=== PATIENT | male | born 1970 | race American Indian/Alaskan Native ===

== ENCOUNTER 2016-10-28 13:02 | Emergency (ER) | payer OTHER ==
[2016-10-28 13:50] VITALS: BMI 34.4
--- NOTE | 2016-10-28 14:05 | ED PDOC ---
Arrival/HPI - General Chief Complaint: Flu-like Symptoms Time Seen by Provider: 10/28/16 13:58 Historian: Patient - History of Present Illness Time/Duration: Other (2 day) Symptom Onset: Gradual Symptom Course: Unchanged Quality: Aching Severity Level: Mild Activities at Onset: Rest Associated Symptoms (Text): 10/28/16 14:03 Patient complains of a 2 day history of mild nonproductive cough congestion and URI symptoms. Fever to 101. No sputum production. Generalized myalgias and arthralgias. Some chills. No abdominal pain nausea or vomiting. No genitourinary symptoms. No sore throat. No dyspnea. No chest pain, Past Medical History - Infectious Disease Hx of Infectious Diseases: None - Tetanus Immunization Tetanus Immunization: >10 years Ago, Unknown - Past Medical History Past Medical History: No Previous - Cardiac Hx Cardiac Disorders: No - Pulmonary Hx Respiratory Disorders: No - Neurological Hx Neurological Disorder: No - HEENT Hx HEENT Disorder: No - Renal Hx Renal Disorder: No - Endocrine/Metabolic Hx Endocrine Disorders: Yes Hx Diabetes Mellitus Type 2: Yes - Hematological/Oncological Hx Blood Disorders: No - Integumentary Hx Dermatological Disorder: No Hx Basal Cell Carcinoma: No - Musculoskeletal/Rheumatological Hx Musculoskeletal Disorders: No - Gastrointestinal Hx Gastrointestinal Disorders: No - Genitourinary/Gynecological Hx Genitourinary Disorders: No - Psychiatric Hx Psychophysiologic Disorder: No Hx Substance Use: No - Past Surgical History Past Surgical History: No Previous - Surgical History Other/Comment: left index and middle fingers - Anesthesia Hx Anesthesia: No Hx Anesthesia Reactions: No Hx Malignant Hyperthermia: No - Suicidal Assessment Feels Threatened In Home Enviroment: No Family/Social History - Physician Review Nursing Documentation Reviewed: Yes Family/Social History: Unknown Family HX Smoking Status: Light Smoker < 10 Cigarettes Daily Hx Alcohol Use: No Hx Substance Use: No Hx Substance Use Treatment: No Allergies/Home Meds Allergies/Adverse Reactions: Allergies No Known Allergies Allergy (Verified 08/22/16 08:00) Home Medications: Home Meds Medication Instructions Recorded Confirmed Atorvastatin Calcium [Lipitor] 10 mg PO DAILY 08/22/16 10/28/16 Review of Systems - Physician Review All systems were reviewed & negative as marked: Yes - Review of Systems Constitutional: Fatigue, Fevers Respiratory: Cough. absent: SOB, Sputum, Wheezing Cardiovascular: absent: Chest Pain, Palpitations, Syncope Gastrointestinal: absent: Abdominal Pain, Diarrhea, Nausea, Vomiting Genitourinary Male: absent: Dysuria, Frequency, Hematuria Musculoskeletal: Arthralgias, Myalgias Neurological: absent: Headache, Dizziness, Focal Weakness Physical Exam Vital Signs Temp Pulse Resp BP Pulse Ox 10/28/16 15:24 98.4 F 65 20 123/86 100 10/28/16 13:15 97.8 F 76 18 129/93 H 98 Temperature: Afebrile Blood Pressure: Hypertensive Pulse: Regular Respiratory Rate: Normal Appearance: Positive for: Well-Appearing, Non-Toxic, Comfortable Pain Distress: None Mental Status: Positive for: Alert and Oriented X 3 - Systems Exam Head: Present: Atraumatic, Normocephalic Pupils: Present: PERRL Extroacular Muscles: Present: EOMI Conjunctiva: Present: Normal Ears: Present: NORMAL TM. No: Erythema Mouth: Present: Moist Mucous Membranes Pharnyx: No: ERYTHEMA, EXUDATE, TONSILS ENLARGED Neck: Present: Normal Range of Motion. No: Meningeal Signs, MIDLINE TENDERNESS , Paraspinal Tenderness Respiratory/Chest: Present: Clear to Auscultation, Good Air Exchange. No: Respiratory Distress, Accessory Muscle Use Cardiovascular: Present: Regular Rate and Rhythm, Normal S1, S2. No: Murmurs Abdomen: Present: Normal Bowel Sounds. No: Tenderness, Distention, Peritoneal Signs, Rebound, Guarding Neurological: Present: GCS=15, CN II-XII Intact, Speech Normal, Motor Func Grossly Intact Skin: Present: Warm, Dry, Normal Color. No: Rashes Psychiatric: Present: Alert, Oriented x 3, Normal Insight, Normal Concentration Medical Decision Making ED Course and Treatment: 10/28/16 15:29 The lab has just now received his influenza sample 10/28/16 15:44 Influenza is negative. Chest x-ray shows no infiltrate. We will treat for bronchitis. - Lab Interpretations Lab Results: Lab Results 10/28/16 14:02: Influenza Typ A,B (EIA) Negative for flu a/b - RAD Interpretation Radiology Orders: 10/28/16 14:02 CHEST TWO VIEWS (PA/LAT) [RAD] Stat Chest 2 view shows no infiltrate effusion or cardiomegaly Soldering Technician: ED Physician Disposition/Present on Arrival - Present on Arrival Any Indicators Present on Arrival: No History of DVT/PE: No History of Uncontrolled Diabetes: No Urinary Catheter: No History of Decub. Ulcer: No History Surgical Site Infection Following: None - Disposition Have Diagnosis and Disposition been Completed?: Yes Diagnosis: Bronchitis Disposition: HOME/ ROUTINE Disposition Time: 15:44 Patient Plan: Discharge Condition: GOOD Discharge Instructions (ExitCare): Acute Bronchitis (ED) Additional Instructions: Symptomatic treatment. Tylenol or Advil as directed on bottle as needed. Follow-up with PMD. Follow up in ER as needed. Prescriptions: Benzonatate [Tessalon Perles] 100 mg PO Q8 #30 sgl Azithromycin [Zithromax] 250 mg PO DAILY #6 tab
--- NOTE | 2016-10-28 14:34 | RAD ---
HISTORY: cough COMPARISON: Chest x-ray performed 03/07/15 TECHNIQUE: Chest PA and lateral FINDINGS: LUNGS: No focal consolidation. Please note that chest x-ray has limited sensitivity for the detection of pulmonary masses. PLEURA: No significant pleural effusion identified. No definite pneumothorax . CARDIOVASCULAR: The cardiomediastinal silhouette appears within normal limits of size. OSSEOUS STRUCTURES: Degenerative changes of the spine. VISUALIZED UPPER ABDOMEN: Unremarkable. OTHER FINDINGS: None. IMPRESSION: No focal consolidation, significant pleural effusion, or definite pneumothorax identified.
[2016-10-28 15:25] VITALS: BP 123/86; PULSE 65; RESP 20; TEMP 98.4; O2SAT 100
== END 2016-10-28 16:00 | disposition home or self-care (01) ==
LOC: ED 13:02
DX: J40 Bronchitis, not specified as acute or chronic (principal); E11.9 Type 2 diabetes mellitus without complications; F17.210 Nicotine dependence, cigarettes, uncomplicated

== ENCOUNTER 2017-11-28 08:57 | Emergency (ER) | payer OTHER ==
[2017-11-28 08:57] VITALS: BMI 34.4
[2017-11-28 09:07] VITALS: TEMP 98.2; O2SAT 98
[2017-11-28] MEDS ORDERED: Promethazine/Cod 6.25mg-10mg/5ml Syr UD PO STA (09:16)
--- NOTE | 2017-11-28 09:20 | ED PDOC ---
Arrival/HPI - General Chief Complaint: Flu-like Symptoms Time Seen by Provider: 11/28/17 09:11 Historian: Patient - History of Present Illness Narrative History of Present Illness (Text): 11/28/17 09:17 This 47 yo male with a pmh Diabetes 2, presents to this emergency department complaining of cough, myalgias, and fever since yesterday. Patient stated " I think I have the flu". Patient did not get influenza vaccines this season. Patient denies shortness of breath, chest pain, abdominal pain, recent travel, arthralgias, n/v/d, abnormal gait, or urinary symptoms. Time/Duration: Other (see hpi) Context: Home Past Medical History - Provider Review Nursing Documentation Reviewed: Yes - Infectious Disease Hx of Infectious Diseases: None - Tetanus Immunization Tetanus Immunization: >10 years Ago, Unknown - Past Medical History Past Medical History: No Previous - Cardiac Hx Cardiac Disorders: No - Pulmonary Hx Respiratory Disorders: No - Neurological Hx Neurological Disorder: No - HEENT Hx HEENT Disorder: No - Renal Hx Renal Disorder: No - Endocrine/Metabolic Hx Endocrine Disorders: Yes Hx Diabetes Mellitus Type 2: Yes - Hematological/Oncological Hx Blood Disorders: No - Integumentary Hx Dermatological Disorder: No Hx Basal Cell Carcinoma: No - Musculoskeletal/Rheumatological Hx Musculoskeletal Disorders: No - Gastrointestinal Hx Gastrointestinal Disorders: No - Genitourinary/Gynecological Hx Genitourinary Disorders: No - Psychiatric Hx Psychophysiologic Disorder: No Hx Substance Use: No - Past Surgical History Past Surgical History: No Previous - Surgical History Other/Comment: left index and middle fingers - Anesthesia Hx Anesthesia: No Hx Anesthesia Reactions: No Hx Malignant Hyperthermia: No - Suicidal Assessment Feels Threatened In Home Enviroment: No Family/Social History - Physician Review Nursing Documentation Reviewed: Yes Family/Social History: Other (noncontributory) Smoking Status: Light Smoker < 10 Cigarettes Daily Hx Alcohol Use: No Hx Substance Use: No Hx Substance Use Treatment: No Allergies/Home Meds Allergies/Adverse Reactions: Allergies No Known Allergies Allergy (Verified 11/28/17 09:08) Home Medications: Home Meds Medication Instructions Recorded Confirmed metFORMIN 1 tab PO DAILY 11/28/17 11/28/17 Review of Systems - Review of Systems Constitutional: Fevers. absent: Fatigue, Weight Change, Night Sweats, Other Eyes: Normal. absent: Photophobia ENT: Normal. absent: Sore Throat, Rhinorrhea Respiratory: Cough. absent: SOB, Sputum, Wheezing Cardiovascular: Normal. absent: Chest Pain, Palpitations Gastrointestinal: Normal. absent: Abdominal Pain, Constipation, Diarrhea, Nausea, Vomiting Genitourinary Male: Normal. absent: Dysuria, Frequency, Hematuria Musculoskeletal: Myalgias. absent: Arthralgias, Back Pain, Neck Pain, Joint Swelling Skin: Normal. absent: Rash Neurological: Normal. absent: Headache, Dizziness, Focal Weakness, Gait Changes , Speech Changes, Facial Droop, Disequilibrium, Seizure Endocrine: Normal Hemo/Lymphatic: Normal Psychiatric: Normal. absent: Anxiety, Depression, Suicidal Ideation Physical Exam Vital Signs Temp Pulse Resp BP Pulse Ox 11/28/17 09:01 98.2 F 78 18 140/87 98 11/28/17 08:57 98.2 F 78 18 140/87 98 Temperature: Afebrile Blood Pressure: Normal Pulse: Regular Respiratory Rate: Normal Appearance: Positive for: Well-Appearing, Non-Toxic, Comfortable Pain Distress: None Mental Status: Positive for: Alert and Oriented X 3 - Systems Exam Head: Present: Atraumatic, Normocephalic Pupils: Present: PERRL Extroacular Muscles: Present: EOMI Conjunctiva: Present: Normal Mouth: Present: Moist Mucous Membranes Neck: Present: Normal Range of Motion Respiratory/Chest: Present: Clear to Auscultation, Good Air Exchange. No: Respiratory Distress, Accessory Muscle Use, Wheezes, Decreased Breath Sounds, Rales, Retracting, Rhonchi, Tachypneic Cardiovascular: Present: Regular Rate and Rhythm, Normal S1, S2. No: Murmurs Abdomen: No: Tenderness, Distention, Peritoneal Signs Back: Present: Normal Inspection. No: CVA Tenderness Upper Extremity: Present: Normal Inspection, Normal ROM. No: Cyanosis, Edema Lower Extremity: Present: Normal Inspection, Normal ROM. No: Edema Neurological: Present: GCS=15, CN II-XII Intact, Speech Normal Skin: Present: Warm, Dry, Normal Color. No: Rashes Psychiatric: Present: Alert, Oriented x 3, Normal Insight, Normal Concentration Medical Decision Making ED Course and Treatment: 11/28/17 10:38 Influenza test was negative. lungs CTA b/l, no wheezing or rhonchi. Patient feels better and he wishes to be discharge home. Patient was instructed to return to emergency department if symptoms worsen, shortness of breath, or chest pain. Re-evaluation Time: 10:39 Reassessment Condition: Re-examined, Improved - Lab Interpretations Lab Results: Lab Results 11/28/17 09:20: Influenza Typ A,B (EIA) Negative for flu a/b I have reviewed the lab results: Yes Interpretation: No clinic. lab abnormalty - Medication Orders Current Medication Orders: Discontinued Medications Promethazine HCl/Codeine (Phenergan/Codeine Oral Syrup) 5 ml PO STAT STA Stop: 11/28/17 09:17 Last Admin: 11/28/17 09:27 Dose: 5 ml Disposition/Present on Arrival - Present on Arrival Any Indicators Present on Arrival: No History of DVT/PE: No History of Uncontrolled Diabetes: No Urinary Catheter: No History of Decub. Ulcer: No History Surgical Site Infection Following: None - Disposition Have Diagnosis and Disposition been Completed?: Yes Diagnosis: Acute bronchitis Disposition: HOME/ ROUTINE Disposition Time: 10:39 Patient Plan: Discharge Patient Problems: Current Active Problems Problem Status Onset Acute bronchitis Acute Condition: IMPROVED Discharge Instructions (ExitCare): Acute Bronchitis Additional Instructions: Call private doctor for follow up visit in 1-2 days. Take medication as instructed. return to emergency if symptoms worsen, shortness of breath or chest pain. Do not drive or operate machinery if you take cough medication for at least 12 hours. Prescriptions: Azithromycin [Z-Koffi] 250 mg PO DAILY #6 tab Promethazine/Codeine [Codeine/Promethazine 10 MG/5 Ml-6.25 MG/5 Ml] 5 ml PO Q4H PRN #120 ml PRN Reason: Cough And Congestion Referrals: [facility], [Primary Care Provider] - Follow up with primary [facility] [Outside] - Follow up with primary [facility] [Outside] - Follow up with primary Forms: [employer] (Northern Irish), WORK NOTE
[2017-11-28 11:02] VITALS: BP 156/108; PULSE 72; RESP 20
== END 2017-11-28 11:03 | disposition home or self-care (01) ==
LOC: ED 08:57
DX: J20.9 Acute bronchitis, unspecified (principal); E11.9 Type 2 diabetes mellitus without complications; F17.210 Nicotine dependence, cigarettes, uncomplicated

== ENCOUNTER 2018-02-05 14:05 | Emergency (ER) | payer OTHER ==
[2018-02-05 14:06] VITALS: BMI 34.4
--- NOTE | 2018-02-05 14:39 | ED PDOC ---
Arrival/HPI - General Chief Complaint: High Blood Sugar Time Seen by Provider: 02/05/18 14:13 Historian: Patient - History of Present Illness Narrative History of Present Illness (Text): you were treated in the ED today for hx of pancreatitic cancer, hypertension, diabetes which you take metformin 500mg daily and had a blood sugar reading of above 400 at home and feeling tired but otherwise without any nausea/vomiting/ headache/dizziness/difficulty breathing/chest pain/abdomen pain/numbness/ tingling/loss of limb function/pain with urination. 02/05/18 14:39 Time/Duration: 4-6 hours Symptom Onset: Gradual Symptom Course: Improving Quality: Other (no pain) Activities at Onset: Rest Context: Sitting Past Medical History - Provider Review Nursing Documentation Reviewed: Yes - Travel History Have you recently traveled outside [place] w/in the past 3 mons?: No - Infectious Disease Hx of Infectious Diseases: None - Tetanus Immunization Tetanus Immunization: >10 years Ago, Unknown - Past Medical History Past Medical History: No Previous - Cardiac Hx Cardiac Disorders: Yes Hx Hypertension: Yes - Pulmonary Hx Respiratory Disorders: No - Neurological Hx Neurological Disorder: No - HEENT Hx HEENT Disorder: No - Renal Hx Renal Disorder: No - Endocrine/Metabolic Hx Endocrine Disorders: Yes Hx Diabetes Mellitus Type 2: Yes - Hematological/Oncological Hx Blood Disorders: No - Integumentary Hx Dermatological Disorder: No Hx Basal Cell Carcinoma: No - Musculoskeletal/Rheumatological Hx Musculoskeletal Disorders: No - Gastrointestinal Hx Gastrointestinal Disorders: No - Genitourinary/Gynecological Hx Genitourinary Disorders: No - Psychiatric Hx Psychophysiologic Disorder: No Hx Substance Use: No - Past Surgical History Past Surgical History: No Previous - Surgical History Other/Comment: left index and middle fingers - Anesthesia Hx Anesthesia: No Hx Anesthesia Reactions: No Hx Malignant Hyperthermia: No - Suicidal Assessment Feels Threatened In Home Enviroment: No Family/Social History - Physician Review Nursing Documentation Reviewed: Yes Family/Social History: No Known Family HX Smoking Status: Light Smoker < 10 Cigarettes Daily Hx Alcohol Use: No Hx Substance Use: No Hx Substance Use Treatment: No Allergies/Home Meds Allergies/Adverse Reactions: Allergies No Known Allergies Allergy (Verified 02/05/18 14:18) Home Medications: Home Meds Medication Instructions Recorded Confirmed metFORMIN 1 tab PO DAILY 11/28/17 11/28/17 Review of Systems - Review of Systems Constitutional: Fatigue Eyes: Normal ENT: Normal Respiratory: Normal Cardiovascular: Normal Gastrointestinal: Normal Genitourinary Male: Normal Musculoskeletal: Normal Skin: Normal Neurological: Normal Endocrine: Normal Hemo/Lymphatic: Normal Psychiatric: Normal Physical Exam Vital Signs Reviewed: Yes Vital Signs Temp Pulse Resp BP Pulse Ox 02/05/18 14:52 98.4 F 96 H 16 119/83 99 Appearance: Positive for: Well-Appearing, Non-Toxic, Comfortable Pain Distress: None Mental Status: Positive for: Alert and Oriented X 3 Finger Stick Blood Glucose: 287 - Systems Exam Head: Present: Atraumatic, Normocephalic Pupils: Present: PERRL Extroacular Muscles: Present: EOMI Conjunctiva: Present: Normal Ears: Present: Normal Mouth: Present: Moist Mucous Membranes Pharnyx: Present: Normal Nose (External): Present: Atraumatic Nose (Internal): Present: Normal Inspection Neck: Present: Normal Range of Motion Respiratory/Chest: Present: Clear to Auscultation, Good Air Exchange Cardiovascular: Present: Regular Rate and Rhythm Abdomen: No: Tenderness, Distention, Normal Bowel Sounds, Peritoneal Signs, Rebound, Guarding, McBurney's Point Tender, Rovsing's Sign Present, Hernias, Feeding Tubes, Ostomy Tubes, Mass/Organomegaly, Scars, Other Back: Present: Normal Inspection Upper Extremity: Present: Normal Inspection Lower Extremity: Present: Normal Inspection Neurological: Present: GCS=15, CN II-XII Intact, Speech Normal, Motor Func Grossly Intact Skin: Present: Warm, Normal Color Psychiatric: Present: Alert, Oriented x 3, Normal Insight, Normal Concentration Medical Decision Making ED Course and Treatment: you were treated in the ED today for hx of pancreatitic cancer, hypertension, diabetes which you take metformin 500mg daily and had a blood sugar reading of above 400 at home and feeling tired but otherwise without any nausea/vomiting/ headache/dizziness/difficulty breathing/chest pain/abdomen pain/numbness/ tingling/loss of limb function/pain with urination. You were otherwise breathing easily, smiling and laughing and talking easily, good strength/ sensation, walking easily, clear lungs, no abdomen tenderness, no fever temp 98.4, stable heart rate 96, stable breathing rate 18, excellent oxygen level 99% room air, elevated blood pressure 119/83 which we recommend repeat in 2-3 days primary care office to determine further treatment, repeat blood glucose finger stick 286, observation done in the ED with improvement, counselled to stay further in the ED for observation/intravenous fluids/lab tests/ECG but you refused and cautioned for complications but you stated you felt fine and will increase your dose of metformin to 500mg twice daily and followup with your primary care physician later today for followup and thus wanted to go home. 1. Recommend follow-up primary care today to review symptoms, review medications for glucose control and in general. 2. If any worsening pain, fever, chills, nausea, vomiting, difficulty breathing, numbness, loss of limb function, pain with urination or any medical condition then return to the ED. Disposition/Present on Arrival - Present on Arrival Any Indicators Present on Arrival: No History of DVT/PE: No History of Uncontrolled Diabetes: No Urinary Catheter: No History of Decub. Ulcer: No History Surgical Site Infection Following: None - Disposition Have Diagnosis and Disposition been Completed?: Yes Diagnosis: Hyperglycemia Disposition: HOME/ ROUTINE Disposition Time: 14:40 Patient Plan: Discharge Patient Problems: Current Active Problems Problem Status Onset Hyperglycemia Acute Condition: IMPROVED Additional Instructions: you were treated in the ED today for hx of pancreatitic cancer, hypertension, diabetes which you take metformin 500mg daily and had a blood sugar reading of above 400 at home and feeling tired but otherwise without any nausea/vomiting/ headache/dizziness/difficulty breathing/chest pain/abdomen pain/numbness/ tingling/loss of limb function/pain with urination. You were otherwise breathing easily, smiling and laughing and talking easily, good strength/ sensation, walking easily, clear lungs, no abdomen tenderness, no fever temp 98.4, stable heart rate 96, stable breathing rate 18, excellent oxygen level 99% room air, elevated blood pressure 119/83 which we recommend repeat in 2-3 days primary care office to determine further treatment, repeat blood glucose finger stick 286, observation done in the ED with improvement, counselled to stay further in the ED for observation/intravenous fluids/lab tests/ECG but you refused and cautioned for complications but you stated you felt fine and will increase your dose of metformin to 500mg twice daily and followup with your primary care physician later today for followup and thus wanted to go home. 1. Recommend follow-up primary care today to review symptoms, review medications for glucose control and in general. 2. If any worsening pain, fever, chills, nausea, vomiting, difficulty breathing, numbness, loss of limb function, pain with urination or any medical condition then return to the ED. Forms: [employer] (Slovenian)
[2018-02-05 14:53] VITALS: BP 119/83; PULSE 96; RESP 16; TEMP 98.4; O2SAT 99
== END 2018-02-05 15:07 | disposition home or self-care (01) ==
LOC: ED 14:05
DX: E11.65 Type 2 diabetes mellitus with hyperglycemia (principal); F17.210 Nicotine dependence, cigarettes, uncomplicated; I10 Essential (primary) hypertension

== ENCOUNTER 2018-02-14 09:25 | Emergency (ER) | payer OTHER ==
[2018-02-14 09:26] VITALS: BMI 34.4
[2018-02-14 11:02] VITALS: RESP 18; TEMP 98.5; O2SAT 98
[2018-02-14] MEDS ORDERED: Sodium Chloride 0.9% 1,000 ML IV STA (11:13)
--- NOTE | 2018-02-14 11:24 | ED PDOC ---
Arrival/HPI - General Chief Complaint: High Blood Sugar Time Seen by Provider: 02/14/18 11:07 Historian: Patient - History of Present Illness Narrative History of Present Illness (Text): 02/14/18 11:14 47 year old male, whose past medical history includes diabetes, who presents to the emergency department for high glucose since this morning. Patient went to the local clinic for a routine check-up, who sent the patient to the emergency department due to high glucose levels. Patient notes he last took medication at 06:05. Patient denies any fever, chills, chest pain, shortness of breath, nausea , vomiting, diarrhea, back pain, neck pain, headache, dizziness, or any other complaints. Time/Duration: Prior to Arrival Symptom Onset: Sudden Symptom Course: Unchanged Activities at Onset: Light Context: Home Past Medical History - Provider Review Nursing Documentation Reviewed: Yes - Infectious Disease Hx of Infectious Diseases: None - Tetanus Immunization Tetanus Immunization: >10 years Ago, Unknown - Past Medical History Past Medical History: No Previous - Cardiac Hx Cardiac Disorders: Yes Hx Hypertension: Yes - Pulmonary Hx Respiratory Disorders: No - Neurological Hx Neurological Disorder: No - HEENT Hx HEENT Disorder: No - Renal Hx Renal Disorder: No - Endocrine/Metabolic Hx Endocrine Disorders: Yes Hx Diabetes Mellitus Type 2: Yes - Hematological/Oncological Hx Blood Disorders: No - Integumentary Hx Dermatological Disorder: No Hx Basal Cell Carcinoma: No - Musculoskeletal/Rheumatological Hx Musculoskeletal Disorders: No - Gastrointestinal Hx Gastrointestinal Disorders: No - Genitourinary/Gynecological Hx Genitourinary Disorders: No - Psychiatric Hx Psychophysiologic Disorder: No Hx Substance Use: No - Past Surgical History Past Surgical History: No Previous - Surgical History Other/Comment: left index and middle fingers - Anesthesia Hx Anesthesia: No Hx Anesthesia Reactions: No Hx Malignant Hyperthermia: No - Suicidal Assessment Feels Threatened In Home Enviroment: No Family/Social History - Physician Review Nursing Documentation Reviewed: Yes Family/Social History: Unknown Family HX Smoking Status: Light Smoker < 10 Cigarettes Daily Hx Alcohol Use: No Hx Substance Use: No Hx Substance Use Treatment: No Allergies/Home Meds Allergies/Adverse Reactions: Allergies No Known Allergies Allergy (Verified 02/05/18 14:18) Home Medications: Home Meds Medication Instructions Recorded Confirmed metFORMIN 1,000 tab PO BID 11/28/17 02/14/18 Atorvastatin [Lipitor] 10 mg PO DIN 02/14/18 02/14/18 Review of Systems - Physician Review All systems were reviewed & negative as marked: Yes - Review of Systems Constitutional: Normal Eyes: Normal ENT: Normal Respiratory: Normal. absent: SOB, Cough Cardiovascular: Normal. absent: Chest Pain Gastrointestinal: Normal. absent: Abdominal Pain Genitourinary Male: Normal. absent: Dysuria, Frequency, Hematuria Musculoskeletal: Normal. absent: Back Pain, Neck Pain Skin: Normal. absent: Rash Neurological: Normal. absent: Headache, Dizziness Endocrine: Normal Hemo/Lymphatic: Normal Psychiatric: Normal Physical Exam - Physical Exam Narrative Physical Exam (Text): 02/14/18 11:25 Constitutional: No acute distress. Head: Normocephalic. Atraumatic. Eyes: PERRL. ENT: Moist mucous membranes. Neck: Supple. Cardiovascular: Regular rate. Chest: No tenderness. Respiratory: Clear to auscultation bilaterally. GI: Soft. Nontender. Nondistended. Back: No CVA tenderness. Musculoskeletal: No tenderness or swelling of extremities. Skin: No rash. Neurologic: Alert, no focal deficit. Vital Signs Reviewed: Yes Vital Signs Temp Pulse Resp BP Pulse Ox 02/14/18 10:30 98.5 F 85 18 112/80 98 Temperature: Afebrile Blood Pressure: Normal Pulse: Regular Respiratory Rate: Normal Appearance: Positive for: Well-Appearing, Non-Toxic, Comfortable Pain Distress: None Mental Status: Positive for: Alert and Oriented X 3 Finger Stick Blood Glucose: 433 Medical Decision Making ED Course and Treatment: 02/14/18 11:28 Impression: 47 year old male presents to the emergency department complaining of high glucose levels. Plan: -- Venous Blood Gas -- Labs -- Chest X-ray -- Urinalysis -- Sodium Chloride -- Reassess and disposition Progress Notes: 02/14/18 12:05 Chest X-ray reviewed, shows: LUNGS: The lungs are well inflated and clear. PLEURA: No significant pleural effusion identified, no pneumothorax apparent. CARDIOVASCULAR: Normal. OSSEOUS STRUCTURES: No significant abnormalities. VISUALIZED UPPER ABDOMEN: Normal. OTHER FINDINGS: None. IMPRESSION: No active pulmonary disease. Insulin administered. No DKA. No UTI. Discharged home, f/u clinic today, return to ED for worsening pain, breathing, fever, vomiting, or any other problem. - Lab Interpretations Lab Results: 02/14/18 12:05 07/05/18 12:05 Lab Results 02/14/18 12:50: Urine Color Yellow, Urine Appearance Clear, Urine pH 6.0, Ur Specific [place] 1.010, Urine Protein Negative, Urine Glucose (UA) >=1000, Urine Ketones Negative, Urine Blood Negative, Urine Nitrate Negative, Urine Bilirubin Negative, Urine Urobilinogen 0.2, Ur Leukocyte Esterase Trace H, Urine RBC 0 - 2, Urine WBC 1 - 3, Ur Epithelial Cells 0 - 2, Urine Bacteria Few 02/14/18 12:05: Sodium 138, Potassium 5.1 H, Chloride 99, Carbon Dioxide 28, Anion Gap 17, BUN 16, Creatinine 1.2, Est GFR ( Amer) > 60, Est GFR (Non- Af Amer) > 60, Random Glucose 428 H* D, Calcium 9.9, Total Bilirubin 0.9, AST 34 , ALT 52, Alkaline Phosphatase 83, Total Protein 7.9, Albumin 4.4, Globulin 3.5 , Albumin/Globulin Ratio 1.2 02/14/18 12:05: pO2 31, VBG pH 7.34, VBG pCO2 59.0, VBG HCO3 31.8 H, VBG O2 Sat (Calc) 72.3 H, VBG Base Excess 4.3 H 02/14/18 12:05: WBC 5.0, RBC 4.37, Hgb 13.2 L, Hct 35.9 L, MCV 82.2, MCH 30.2, MCHC 36.8, RDW 11.9, Plt Count 243, MPV 12.5 H, Gran % 56.9, Lymph % (Auto) 30.1 , [place] % (Auto) 10.6 H, Eos % (Auto) 2.0, Baso % (Auto) 0.4, Gran # 2.86, Lymph # (Auto) 1.5, [place] # (Auto) 0.5, Eos # (Auto) 0.1, Baso # (Auto) 0.02 02/14/18 10:53: POC Glucose (mg/dL) 433 H* - RAD Interpretation Radiology Orders: 02/14/18 11:13 CHEST PORTABLE [RAD] Stat - Medication Orders Current Medication Orders: Sodium Chloride (Sodium Chloride 0.9%) 1,000 mls @ 999 mls/hr IV .Q1H1M STA Stop: 02/14/18 12:13 Last Admin: 02/14/18 11:49 Dose: 999 mls/hr eMAR Start Stop Document 02/14/18 11:49 EQ (Rec: 02/14/18 11:49 EQ [id number]) Intravenous Solution Start Date 02/14/18 Start Time 11:49 Insulin Human Regular (Humulin R) 10 units SC STAT STA Stop: 02/14/18 12:46 Last Admin: 02/14/18 13:12 Dose: 10 unit MAR Blood Glucose Document 02/14/18 13:12 EQ (Rec: 02/14/18 13:12 EQ [id number]) Blood Glucose Finger Stick Blood Glucose (70-120) 366 Subcutaneous Administrations Document 02/14/18 13:12 EQ (Rec: 02/14/18 13:12 EQ [id number]) Injection Site MAR Injection Site Left Deltoid Charges for Administration # of Subcutaneous Administrations 1 - Scribe Statement The provider has reviewed the documentation as recorded by the Scriblizzie Russo All medical record entries made by the Scribe were at my direction and personally dictated by me. I have reviewed the chart and agree that the record accurately reflects my personal performance of the history, physical exam, medical decision making, and the department course for this patient. I have also personally directed, reviewed, and agree with the discharge instructions and disposition. Disposition/Present on Arrival - Present on Arrival Any Indicators Present on Arrival: No History of DVT/PE: No History of Uncontrolled Diabetes: No Urinary Catheter: No History of Decub. Ulcer: No History Surgical Site Infection Following: None - Disposition Have Diagnosis and Disposition been Completed?: Yes Diagnosis: Hyperglycemia Disposition: HOME/ ROUTINE Disposition Time: 12:47 Patient Plan: Discharge Condition: STABLE Discharge Instructions (ExitCare): Hyperglycemia, Adult Prescriptions: metFORMIN [glucOPHAGE] 500 mg PO BID #28 tab Referrals: Dena Iqbal APN-C [Primary Care Provider] - Follow up with primary Forms: [employer] (Ecuadorean)
--- NOTE | 2018-02-14 11:59 | RAD ---
HISTORY: hyperglycemia COMPARISON: 10/28/2016. FINDINGS: LUNGS: The lungs are well inflated and clear. PLEURA: No significant pleural effusion identified, no pneumothorax apparent. CARDIOVASCULAR: Normal. OSSEOUS STRUCTURES: No significant abnormalities. VISUALIZED UPPER ABDOMEN: Normal. OTHER FINDINGS: None. IMPRESSION: No active pulmonary disease.
[2018-02-14 12:22] LABS: VENOUS BLOOD GAS BASE EXCESS 4.3 mmol/L (0.0-2.0); VENOUS BLOOD GAS PO2 31 mm/Hg (30-55); VENOUS BLOOD PH 7.34 (7.32-7.43)
[2018-02-14 12:26] LABS: BASO # 0.02 K/mm3 (0.0-2.0); BASO % 0.4 % (0.0-3.0); EOS # 0.1 (0.0-0.7); GRAN # 2.86 (1.4-6.5); GRAN % 56.9 % (50.0-68.0); HEMOGLOBIN 13.2 g/dL (14.0-18.0); LYMPH # 1.5 (1.2-3.4); LYMPH % 30.1 % (22.0-35.0); MEAN CELL VOLUME 82.2 fl (80.0-105.0); MEAN CORPUSCULAR HEMOGLOBIN 30.2 pg (25.0-35.0); MEAN CORPUSCULAR HGB CONC 36.8 g/dl (31.0-37.0); MEAN PLATELET VOLUME 12.5 fl (7.0-11.0); MONO # 0.5 (0.1-0.6); MONO % 10.6 % (1.0-6.0); RBC 4.37 10^6/uL (3.5-6.1); RED CELL DISTRIBUTION WIDTH 11.9 % (11.5-14.5)
[2018-02-14 12:39] LABS: BLOOD UREA NITROGEN 16 mg/dL (7-21); GFR AFRICAN-AMERICAN > 60; GFR NON-AFRICAN AMERICAN > 60
[2018-02-14 12:40] LABS: ALB/GLOB RATIO 1.2 (1.1-1.8); ALBUMIN 4.4 g/dL (3.0-4.8); ALT/SGPT 52 U/L (7-56); AST/SGOT 34 U/L (17-59); CALCIUM 9.9 mg/dL (8.4-10.5)
[2018-02-14] MEDS ORDERED: Insulin Regular 1 UNITS/0.01 ML ML SC STA (12:45)
[2018-02-14 13:00] LABS: URINE APPEARANCE CLEAR (CLEAR); URINE BILIRUBIN NEGATIVE (NEGATIVE); URINE BLOOD NEGATIVE (NEGATIVE); URINE COLOR YELLOW (YELLOW); URINE GLUCOSE (UA) >=1000 mg/dL (NEGATIVE); URINE LEUKOCYTE ESTERASE TRACE Leu/uL (NEGATIVE); URINE PROTEIN NEGATIVE mg/dL (<30 mg/dL); URINE UROBILINOGEN 0.2 E.U./dL (<1 E.U./dL)
[2018-02-14 13:30] LABS: URINE BACTERIA FEW (NEG); URINE EPITHELIAL CELLS 0 - 2 /hpf (0-5); URINE RBC 0 - 2 /hpf (0-2)
[2018-02-14 16:41] VITALS: BP 127/78; PULSE 80
== END 2018-02-14 14:20 | disposition home or self-care (01) ==
LOC: ED 09:25
DX: E11.65 Type 2 diabetes mellitus with hyperglycemia (principal); F17.210 Nicotine dependence, cigarettes, uncomplicated; I10 Essential (primary) hypertension
CPT/HCPCS: 71045; 80053; 81001; 82803; 82948; 85025; 87086; 96372; 99284; J7030